=== PATIENT | male | born 1955 ===

== ENCOUNTER 2018-09-29 21:52 | Inpatient (IN) | payer MEDICAID, OTHER ==
[~2018-09-29] VITALS: Ht 170.2 cm; Wt 65.5 kg
[2018-09-30] MEDS ORDERED: IBUPROFEN 200 MG TAB PO ONE (00:30)
[2018-09-30] MEDS ORDERED: HYDROCODONE/APAP (5/325) TAB PO ONE (00:30)
[2018-09-30] MEDS ORDERED: PIPER-TAZO 3.375 GM IV (PMX) 100 ML IVPB STA (02:52)
[2018-09-30] MEDS ORDERED: VANCOMYCIN 1 GM (PMX) 250 ML IVPB STA (02:52)
--- NOTE | 2018-09-30 02:53 | ERD ---
ER Documentation Chief Complaint Chief Complaint LEFT FOOT PAIN/ SWELLING HPI This is a 62-year-old male who presents for evaluation of several days to have left great toe swelling and pain. Patient denies any history of trauma, he has had no previous episodes of this. The patient was initially triaged in the ED to, where he received an x-ray that was concerning for possible osteomyelitis. Given his x-ray findings and significant swelling, with no prior history of such episodes, it was concerning for infection. Patient denies fever. ROS All systems reviewed and are negative except as per history of present illness. Medications Home Meds Reported Medications Docusate Sodium (Docusil) 100 Mg Capsule, 100 MG PO DAILY, #30 CAP 09/30/18 Famotidine* (Famotidine*) 20 Mg Tablet, 20 MG PO DAILY, #30 TAB 09/30/18 Methadone Hcl* (Methadone*) 10 Mg Tab, 138 MG PO DAILY, TAB 09/30/18 Pyridoxine Hcl* (Vitamin B-6*) 50 Mg Capsule, 50 MG PO DAILY, CAP 09/30/18 Pantoprazole* (Pantoprazole*) 40 Mg Tablet.dr, 40 MG PO DAILY, TAB 09/30/18 Ethambutol HCl* (Myambutol*) 400 Mg Tablet, PO DAILY 09/30/18 Ferrous Sulfate* (Ferrous Sulfate*) 325 Mg Tabec, 325 MG PO DAILY, TAB 09/30/18 Allergies Allergies: Coded Allergies: No Known Allergy (Unverified , 09/30/18) PMhx/Soc Medical and Surgical Hx: pt denies Medical Hx, pt denies Surgical Hx Hx Alcohol Use: Yes (occasional) Hx Substance Use: No Hx Tobacco Use: Yes Smoking Status: Current every day smoker Physical Exam Vitals Vital Signs Date Temp Pulse Resp B/P (MAP) Pulse Ox O2 O2 Flow FiO2 Time Delivery Rate 09/30/18 51 16 151/94 100 Room Air 04:30 (113) 09/29/18 98.6 87 18 120/76 98 21:56 (91) Physical Exam Const: Elderly appearing male who appears stated age, nontoxic Head: Atraumatic Eyes: Normal Conjunctiva ENT: Normal External Ears, Nose and Mouth. Neck: Full range of motion. No meningismus. Resp: Clear to auscultation bilaterally Cardio: Regular rate and rhythm, no murmurs Abd: Soft, non tender, non distended. Normal bowel sounds Skin: No petechiae or rashes Back: No midline or flank tenderness Ext: No cyanosis, or edema. There is swelling and redness and tenderness to left great toe, there is no crepitus, there are no abrasions or lacerations, sensation is intact light touch. Neur: Awake and alert Psych: Normal Mood and Affect Result Diagram: 09/30/187 09/30/18 0457 Results 24 hrs Laboratory Tests Test 09/30/18 04:57 White Blood Count 7.1 10^3/ul Red Blood Count 3.32 10^6/ul Hemoglobin 9.5 g/dl Hematocrit 31.0 % Mean Corpuscular Volume 93.4 fl Mean Corpuscular Hemoglobin 28.6 pg Mean Corpuscular Hemoglobin Concent 30.6 g/dl Red Cell Distribution Width 14.7 % Platelet Count 271 10^3/UL Mean Platelet Volume 11.2 fl Immature Granulocytes % 0.100 % Neutrophils % 52.9 % Lymphocytes % 29.6 % Monocytes % 14.8 % Eosinophils % 2.3 % Basophils % 0.3 % Nucleated Red Blood Cells % 0.0 /100WBC Immature Granulocytes # 0.010 10^3/ul Neutrophils # 3.8 10^3/ul Lymphocytes # 2.1 10^3/ul Monocytes # 1.1 10^3/ul Eosinophils # 0.2 10^3/ul Basophils # 0.0 10^3/ul Nucleated Red Blood Cells # 0.0 10^3/ul Erythrocyte Sedimentation Rate 51 mm/Hr Sodium Level 144 mmol/L Potassium Level 4.7 mmol/L Chloride Level 108 mmol/L Carbon Dioxide Level 30 mmol/L Anion Gap 6 Blood Urea Nitrogen 12 mg/dl Creatinine 0.75 mg/dl Est Glomerular Filtrat Rate mL/min > 60 mL/min Glucose Level 82 mg/dl Calcium Level 8.9 mg/dl Total Bilirubin 0.3 mg/dl Direct Bilirubin 0.00 mg/dl Indirect Bilirubin 0.3 mg/dl Aspartate Amino Transf (AST/SGOT) 58 IU/L Alanine Aminotransferase (ALT/SGPT) 18 IU/L Alkaline Phosphatase 93 IU/L C-Reactive Protein 1.9 mg/dl Total Protein 8.6 g/dl Albumin 3.5 g/dl Globulin 5.10 g/dl Albumin/Globulin Ratio 0.68 Current Medications Medications Dose Sig/Binu Start Time Status Last (Trade) Ordered Route PRN Stop Time Admin Dose Reason Admin Ibuprofen 400 mg ONCE ONCE 09/30/18 DC 09/30/18 (Motrin) PO 00:30 00:24 09/30/18 00:31 1 tab ONCE ONCE 09/30/18 DC 09/30/18 Acetaminophen PO 00:30 00:24 / 09/30/18 00:31 Hydrocodone Bitart ([place] (5/325)) Vancomycin 250 ml @ ONCE STAT 09/30/18 DC 09/30/18 HCl 125 mls/hr IVPB 02:52 05:37 09/30/18 04:51 Piperacillin 100 ml @ ONCE STAT 09/30/18 DC 09/30/18 Sod/ 200 mls/hr IVPB 02:52 05:04 Tazobactam 09/30/18 03:21 Sod Procedures/MDM 62-year-old male presents for evaluation of left great toe pain, with an x-ray with findings concerning for osteomyelitis. Given these findings, the patient will require admission for IV antibiotics, and likely podiatry consult, patient was treated with vancomycin and Zosyn, patient had no evidence of severe sepsis or septic shock. Accepting Care Team: Current data and ongoing care discussed. Primary: Amde Consulting: None Outstanding Data: none Departure Diagnosis: Primary Impression: Osteomyelitis Osteomyelitis type: unspecified type Osteomyelitis location: unspecified site Qualified Codes: M86.9 - Osteomyelitis, unspecified Condition: TREMAINE Moore MD September 30, 2018 02:52
[2018-09-30] MEDS ORDERED: ACETAMINOPHEN 325 MG TAB PO PRN (06:00)
[2018-09-30] MEDS ORDERED: NACL 0.9% 3 ML SYG IV SCH (06:00)
[2018-09-30] MEDS ORDERED: CEFEPIME 1GM/50 ML (PMX) 50 ML IVPB ONE (06:00)
[2018-09-30] MEDS ORDERED: ONDANSETRON 4 MG INJ IV PRN (06:00)
[2018-09-30] MEDS ORDERED: HYDROCODONE/APAP (5/325) TAB PO PRN (06:00)
[2018-09-30] MEDS ORDERED: VANCOMYCIN IV PER PHARMACY XX SCH (06:00)
--- NOTE | 2018-09-30 06:20 | HP ---
Date/Time of Note Date/Time of Note DATE: 09/30/18 TIME: 06:15 Assessment/Plan VTE Prophylaxis Pharmacological prophylaxis: heparin Lines/Catheters IV Catheter Type (from Nrs): Saline Lock Assessment/Plan Assessment/Plan 62-year-old male brought to the ER for left foot swelling/pain X few days, secondary to an infectious process. Need to rule out osteomyelitis PLAN -IV antibiotic -MRI to evaluate for osteomyelitis -Podiatry consult -CRP and ESR -Pain management -FOBT and ferritin/iron to evaluate for GI bleed and iron deficiency Result Diagram: 09/30/18 0457 Results 24hrs Laboratory Tests Test 09/30/18 04:57 White Blood Count 7.1 Red Blood Count 3.32 L Hemoglobin 9.5 L Hematocrit 31.0 L Mean Corpuscular Volume 93.4 Mean Corpuscular Hemoglobin 28.6 L Mean Corpuscular Hemoglobin Concent 30.6 L Red Cell Distribution Width 14.7 H Platelet Count 271 Mean Platelet Volume 11.2 H Immature Granulocytes % 0.100 Neutrophils % 52.9 Lymphocytes % 29.6 Monocytes % 14.8 H Eosinophils % 2.3 Basophils % 0.3 Nucleated Red Blood Cells % 0.0 Immature Granulocytes # 0.010 Neutrophils # 3.8 Lymphocytes # 2.1 Monocytes # 1.1 H Eosinophils # 0.2 Basophils # 0.0 Nucleated Red Blood Cells # 0.0 HPI/ROS Admit Date/Time Admit Date/Time Hx of Present Illness This is a 62-year-old male with no significant past medical history who was brought to the ER for left foot and swelling. Symptom has been progressively getting worse for the past few days. Denied trauma. Denied fever/chills, chest pain, shortness of breath, nausea/vomiting. In the ER, lower extremity venous study was negative for DVT. X-ray of the left foot shows the following: -No acute fracture or dislocation. -Deformity of the first MTP joint that is most likely chronic and may be a combination of degenerative postsurgical changes. There is adjacent periosteal reaction, such that the possibility of ongoing or superimposed infection is not excluded. This could be correlated clinically with site of symptomatology; MRI could be considered for further assessment if there is concern for infection or osteomyelitis. -Nonspecific generalized soft tissue swelling, with additional soft tissue density involving or overlying the dorsal tip of the third distal phalanx. PMH/Family/Social Past Medical History Past Surgical Hx: other (see hpi) Family History Significant Family History: no pertinent family hx Social History Alcohol Use: none Smoking Status: Never smoker Drug Use: none Exam Exam Constitutional: other (No acute distress) Head: normocephalic, atraumatic Eyes: EOMI, PERRL Respiratory: other (no wheezing or Rhonchi) Cardiovascular: normal pulse Gastrointestinal: soft, non-tender Extremities: normal pulses Medications Current Medications IV Flush (NS 3 ml) 3 ml PER PROTOCOL IV ; Start 09/30/18 at 06:00 Ondansetron HCl (Zofran Inj) 4 mg Q6H PRN IV NAUSEA/VOMITING; Start 09/30/18 at 06:00 Acetaminophen (Tylenol Tab) 650 mg Q6H PRN PO .PAIN 1-3 OR TEMP; Start 09/30/18 at 06:00 Acetaminophen/ Hydrocodone Bitart ([place] (5/325)) 1 tab Q6H PRN PO .MOD PAIN 4- 6; Start 09/30/18 at 06:00 Acetaminophen/ Hydrocodone Bitart ([place] (5/325)) 2 tab Q6H PRN PO .SEVERE PAIN 7-10; Start 09/30/18 at 06:00 Enoxaparin Sodium (Lovenox) 40 mg DAILY SC ; Start 09/30/18 at 09:00 Vancomycin HCl (Vanco Iv Per Pharmacy) VANCOMYCIN PER PHARMACY PER PROTOCOL XX ; Start 09/30/18 at 06:00 Cefepime HCl 50 ml @ 100 mls/hr ONCE ONCE IVPB ; Start 09/30/18 at 06:00; Sto p 09/30/18 at 06:29 Coded Allergies: No Known Allergy (Unverified , 09/30/18) Social History Smoking Status: Current every day smoker Exam/Review of Systems Vital Signs Vitals Vital Signs Date Temp Pulse Resp B/P (MAP) Pulse Ox O2 O2 Flow FiO2 Time Delivery Rate 09/30/18 51 16 151/94 100 Room Air 04:30 (113) 09/29/18 98.6 21:56 KATHY GARCIA MD September 30, 2018 06:20
[2018-09-30 08:21] VITALS: BP 149/65; PULSE 52; RESP 17
[2018-09-30] MEDS: ENOXAPARIN 40 MG/0.4 ML SYG SC SCH (09:00)
[2018-09-30 09:32] VITALS: Ht 170.2 cm; Wt 65.5 kg
--- NOTE | 2018-09-30 11:48 | PN ---
Date/Time of Note Date/Time of Note DATE: 09/30/18 TIME: 11:46 Assessment/Plan VTE Prophylaxis SCD contraindicated: low risk/ambulating Pharmacological prophylaxis: LMWH Lines/Catheters IV Catheter Type (from Nrs): Saline Lock Assessment/Plan Hospital Course A//P 1. Lt foot infection? osteo? consult podiatry; mri - P 2. Ftt 3. Anemia 4. Incomplete data 5. Tobacco 6. PAD? S: poor historian. follows commands. was hospitalized [County?] for 4 months for unknown problem. O: vss PE no pallor/ droop reg s1s2 no mrg ctab bs + nt nd; no r r g no edema; mild tender foot Result Diagram: 09/30/187 09/30/187 Results 24hrs Laboratory Tests Test 09/30/18 04:57 White Blood Count 7.1 Red Blood Count 3.32 L Hemoglobin 9.5 L Hematocrit 31.0 L Mean Corpuscular Volume 93.4 Mean Corpuscular Hemoglobin 28.6 L Mean Corpuscular Hemoglobin Concent 30.6 L Red Cell Distribution Width 14.7 H Platelet Count 271 Mean Platelet Volume 11.2 H Immature Granulocytes % 0.100 Neutrophils % 52.9 Lymphocytes % 29.6 Monocytes % 14.8 H Eosinophils % 2.3 Basophils % 0.3 Nucleated Red Blood Cells % 0.0 Immature Granulocytes # 0.010 Neutrophils # 3.8 Lymphocytes # 2.1 Monocytes # 1.1 H Eosinophils # 0.2 Basophils # 0.0 Nucleated Red Blood Cells # 0.0 Erythrocyte Sedimentation Rate 51 H Sodium Level 144 Potassium Level 4.7 Chloride Level 108 Carbon Dioxide Level 30 Anion Gap 6 Blood Urea Nitrogen 12 Creatinine 0.75 Est Glomerular Filtrat Rate mL/min > 60 Glucose Level 82 Calcium Level 8.9 Total Bilirubin 0.3 Direct Bilirubin 0.00 Indirect Bilirubin 0.3 Aspartate Amino Transf (AST/SGOT) 58 H Alanine Aminotransferase (ALT/SGPT) 18 Alkaline Phosphatase 93 C-Reactive Protein 1.9 H Total Protein 8.6 H Albumin 3.5 Globulin 5.10 H Albumin/Globulin Ratio 0.68 Exam/Review of Systems Exam Vitals Vital Signs Date Temp Pulse Resp B/P (MAP) Pulse Ox O2 O2 Flow FiO2 Time Delivery Rate 09/30/18 97.7 52 17 149/65 98 Room Air 08:21 (93) Results Results 24hrs Laboratory Tests Test 09/30/18 04:57 White Blood Count 7.1 Red Blood Count 3.32 L Hemoglobin 9.5 L Hematocrit 31.0 L Mean Corpuscular Volume 93.4 Mean Corpuscular Hemoglobin 28.6 L Mean Corpuscular Hemoglobin Concent 30.6 L Red Cell Distribution Width 14.7 H Platelet Count 271 Mean Platelet Volume 11.2 H Immature Granulocytes % 0.100 Neutrophils % 52.9 Lymphocytes % 29.6 Monocytes % 14.8 H Eosinophils % 2.3 Basophils % 0.3 Nucleated Red Blood Cells % 0.0 Immature Granulocytes # 0.010 Neutrophils # 3.8 Lymphocytes # 2.1 Monocytes # 1.1 H Eosinophils # 0.2 Basophils # 0.0 Nucleated Red Blood Cells # 0.0 Erythrocyte Sedimentation Rate 51 H Sodium Level 144 Potassium Level 4.7 Chloride Level 108 Carbon Dioxide Level 30 Anion Gap 6 Blood Urea Nitrogen 12 Creatinine 0.75 Est Glomerular Filtrat Rate mL/min > 60 Glucose Level 82 Calcium Level 8.9 Total Bilirubin 0.3 Direct Bilirubin 0.00 Indirect Bilirubin 0.3 Aspartate Amino Transf (AST/SGOT) 58 H Alanine Aminotransferase (ALT/SGPT) 18 Alkaline Phosphatase 93 C-Reactive Protein 1.9 H Total Protein 8.6 H Albumin 3.5 Globulin 5.10 H Albumin/Globulin Ratio 0.68 Medications Medication Current Medications IV Flush (NS 3 ml) 3 ml PER PROTOCOL IV ; Start 09/30/18 at 06:00 Ondansetron HCl (Zofran Inj) 4 mg Q6H PRN IV NAUSEA/VOMITING; Start 09/30/18 at 06:00 Acetaminophen (Tylenol Tab) 650 mg Q6H PRN PO .PAIN 1-3 OR TEMP; Start 09/30/18 at 06:00 Acetaminophen/ Hydrocodone Bitart ([place] (5/325)) 1 tab Q6H PRN PO .MOD PAIN 4- 6; Start 09/30/18 at 06:00 Acetaminophen/ Hydrocodone Bitart ([place] (5/325)) 2 tab Q6H PRN PO .SEVERE PAIN 7-10; Start 09/30/18 at 06:00 Enoxaparin Sodium (Lovenox) 40 mg DAILY SC ; Start 09/30/18 at 09:00 Vancomycin HCl (Vanco Iv Per Pharmacy) VANCOMYCIN PER PHARMACY PER PROTOCOL XX ; Start 09/30/18 at 06:00 Vancomycin HCl 250 ml @ 125 mls/hr Q12H IVPB ; Start 09/30/18 at 18:00 Lactobacillus Acidophilus/ Rhamnosus (Culturelle) 1 cap BID PO ; Start 09/30/18 at 11:15 WALTER LEONARD MD September 30, 2018 11:48
[2018-09-30] MEDS: HYDROCODONE/APAP (5/325) TAB PO PRN (13:54)
[2018-09-30] MEDS: LACTOBACILLUS RHAMNOSUS CAP PO SCH ×2 (13:54→20:24)
[2018-09-30 15:10] VITALS: BP 147/67; PULSE 65; RESP 16
[2018-09-30] MEDS ORDERED: FER325 PO (16:03)
[2018-09-30] MEDS ORDERED: PANT40TA4 PO (16:03)
[2018-09-30] MEDS ORDERED: PYRI50CA PO (16:03)
[2018-09-30] MEDS ORDERED: ETHA400T24 PO (16:03)
[2018-09-30] MEDS ORDERED: METH10TA2 PO (16:03)
[2018-09-30] MEDS ORDERED: FAMO20TA18 PO (16:04)
[2018-09-30] MEDS ORDERED: DOCU-103 PO (16:05)
[2018-09-30] MEDS: VANCOMYCIN 1 GM 250 ML IVPB SCH (18:11)
[2018-10-01] MEDS: HYDROCODONE/APAP (5/325) TAB PO PRN ×2 (03:33→19:45)
[2018-10-01] MEDS: VANCOMYCIN 1 GM 250 ML IVPB SCH ×2 (05:10→18:54)
[2018-10-01] MEDS: ENOXAPARIN 40 MG/0.4 ML SYG SC SCH (09:00)
[2018-10-01] MEDS: LACTOBACILLUS RHAMNOSUS CAP PO SCH ×2 (09:00→21:00)
--- NOTE | 2018-10-01 14:40 | CONS ---
Assessment/Plan Assessment/Plan Assessment/Plan (Daily) Left foot ulcer PAD Tobacco use Anemia Osteoarthritis Left foot Plan Patient refused examination, made multiple attempts with charge nurse present and continued to refuse. Per nursing reports patient had threatened to leave AMA. Reviewed MRI and X-rays and no signs of osteomyelitis appreciated. Continue with abx therapy as recommended. Consultation Date/Type/Reason Admit Date/Time Date/Time of Note DATE: 10/01/18 TIME: 14:39 Hx of Present Illness 62-year-old male with no significant past medical history who was brought to the ER for left foot and swelling. Symptom has been progressively getting worse for the past few days. Denied trauma. Denied fever/chills, chest pain, shortness of breath, nausea/vomiting. In the ER, lower extremity venous study was negative for DVT. Patient was very dismissive and did not provide much history. Per nursing staff patient is upset about his methadone medication and has been refusing treatments and had threatened to leave AMA. ROS Negative except for HPI Past Medical History none reported Home Meds Reported Medications Docusate Sodium (Docusil) 100 Mg Capsule, 100 MG PO DAILY, #30 CAP 09/30/18 Famotidine* (Famotidine*) 20 Mg Tablet, 20 MG PO DAILY, #30 TAB 09/30/18 Methadone Hcl* (Methadone*) 10 Mg Tab, 138 MG PO DAILY, TAB 09/30/18 Pyridoxine Hcl* (Vitamin B-6*) 50 Mg Capsule, 50 MG PO DAILY, CAP 09/30/18 Pantoprazole* (Pantoprazole*) 40 Mg Tablet.dr, 40 MG PO DAILY, TAB 09/30/18 Ethambutol HCl* (Myambutol*) 400 Mg Tablet, PO DAILY 09/30/18 Ferrous Sulfate* (Ferrous Sulfate*) 325 Mg Tabec, 325 MG PO DAILY, TAB 09/30/18 Medications Current Medications IV Flush (NS 3 ml) 3 ml PER PROTOCOL IV ; Start 09/30/18 at 06:00 Ondansetron HCl (Zofran Inj) 4 mg Q6H PRN IV NAUSEA/VOMITING; Start 09/30/18 at 06:00 Acetaminophen (Tylenol Tab) 650 mg Q6H PRN PO .PAIN 1-3 OR TEMP; Start 09/30/18 at 06:00 Acetaminophen/ Hydrocodone Bitart ([place] (5/325)) 1 tab Q6H PRN PO .MOD PAIN 4- 6; Start 09/30/18 at 06:00 Acetaminophen/ Hydrocodone Bitart ([place] (5/325)) 2 tab Q6H PRN PO .SEVERE PAIN 7-10 Last administered on 10/01/18at 03:33; Admin Dose 2 TAB; Start 09/30/18 at 06:00 Enoxaparin Sodium (Lovenox) 40 mg DAILY SC ; Start 09/30/18 at 09:00 Vancomycin HCl (Vanco Iv Per Pharmacy) VANCOMYCIN PER PHARMACY PER PROTOCOL XX ; Start 09/30/18 at 06:00 Vancomycin HCl 250 ml @ 125 mls/hr Q12H IVPB Last administered on 10/01/18at 05:10; Admin Dose 125 MLS/HR; Start 09/30/18 at 18:00 Lactobacillus Acidophilus/ Rhamnosus (Culturelle) 1 cap BID PO Last administered on 09/30/18at 13:54; Admin Dose 1 CAP; Start 09/30/18 at 11:15 Miscellaneous Information (*Rx Drug Level Order Reminder*) 1 1700 ONCE XX ; Start 10/01/18 at 17:00; Stop 10/01/18 at 17:01 Methadone HCl (Methadone Liq) 130 mg DAILY PO ; Start 10/01/18 at 15:00 Allergies: Coded Allergies: No Known Allergy (Unverified , 09/30/18) Past Surgical History Past Surgical Hx: no surgical history Family History Significant Family History: no pertinent family hx Social History Smoking Status: Never smoker Exam/Review of Systems Exam Vitals Vital Signs Date Temp Pulse Resp B/P (MAP) Pulse Ox O2 O2 Flow FiO2 Time Delivery Rate 09/30/18 97.8 65 16 147/67 98 Room Air 15:10 (93) Intake and Output 09/30/18 09/30/18 10/01/18 1515:00 23:00 07:00 IntakeIntake Total 250 ml 125 ml OutputOutput Total 400 ml BalanceBalance 250 ml -275 ml Exam Patient refused physical exam Results Result Diagram: 09/30/18 0457 09/30/18 0457 Medications Medication Current Medications IV Flush (NS 3 ml) 3 ml PER PROTOCOL IV ; Start 09/30/18 at 06:00 Ondansetron HCl (Zofran Inj) 4 mg Q6H PRN IV NAUSEA/VOMITING; Start 09/30/18 at 06:00 Acetaminophen (Tylenol Tab) 650 mg Q6H PRN PO .PAIN 1-3 OR TEMP; Start 09/30/18 at 06:00 Acetaminophen/ Hydrocodone Bitart ([place] (5/325)) 1 tab Q6H PRN PO .MOD PAIN 4- 6; Start 09/30/18 at 06:00 Acetaminophen/ Hydrocodone Bitart ([place] (5/325)) 2 tab Q6H PRN PO .SEVERE PAIN 7-10 Last administered on 10/01/18at 03:33; Admin Dose 2 TAB; Start 09/30/18 at 06:00 Enoxaparin Sodium (Lovenox) 40 mg DAILY SC ; Start 09/30/18 at 09:00 Vancomycin HCl (Vanco Iv Per Pharmacy) VANCOMYCIN PER PHARMACY PER PROTOCOL XX ; Start 09/30/18 at 06:00 Vancomycin HCl 250 ml @ 125 mls/hr Q12H IVPB Last administered on 10/01/18at 05:10; Admin Dose 125 MLS/HR; Start 09/30/18 at 18:00 Lactobacillus Acidophilus/ Rhamnosus (Culturelle) 1 cap BID PO Last administered on 09/30/18at 13:54; Admin Dose 1 CAP; Start 09/30/18 at 11:15 Miscellaneous Information (*Rx Drug Level Order Reminder*) 1 1700 ONCE XX ; Start 10/01/18 at 17:00; Stop 10/01/18 at 17:01 Methadone HCl (Methadone Liq) 130 mg DAILY PO ; Start 10/01/18 at 15:00 PEGGY DAN DPM October 01, 2018 14:40
[2018-10-01] MEDS ORDERED: METHADONE (1 MG/ML 5 ML PO UD SYG) PO SCH (15:00)
--- NOTE | 2018-10-01 18:22 | PN ---
Date/Time of Note Date/Time of Note DATE: 10/01/18 TIME: 18:20 Assessment/Plan VTE Prophylaxis Risk score (from Ns)>0 risk: 3 SCD applied (from Ns): No SCD contraindicated: other Pharmacological prophylaxis: LMWH Lines/Catheters [facility] Saline Lock Assessment/Plan Hospital Course SUBJECTIVE: Continues to complain of left great toe pain. OBJECTIVE: Physical Exam General: Adequately build 62 year-old male lying in bed in no apparent distress, who looks disheveled. HEENT: Normocephalic, atraumatic. Eyes: Anicteric sclerae, conjunctivae clear. ENT: Nasal septum midline, oral mucosa moist. Neck supple, no JVD noticed. Respiratory: Bilaterally clear breath sounds. No use of accessory muscles of respiration. No adventitious breath sounds. Cardiovascular: S1, S2 heard. Regular rate and rhythm. Abdomen: Soft, nontender, and nondistended. Bowel sounds positive in all 4 quadrants. Genitourinary: Deferred. Extremities: No cyanosis, no clubbing, no edema. Left great toe tenderness. Neurologic: The patient is awake and alert. Labs & Vitals per chart ASSESSMENT & PLAN 62-year-old male with past medical history of substance abuse currently on methadone, who came to the emergency room with chief complaint of left great toe swelling and pain, who was admitted to inpatient setting for further treatment and evaluation. 1. Left great toe redness and edema. -Left foot MRI limited due to motion. -Refused examination by podiatry. -Continue empiric antimicrobials for any underlying infectious process. 2. Chronic pain. -Continue methadone. 3. Normocytic anemia. -Etiology unclear. -Monitor H&H closely. 4. Fluids, electrolytes, and nutrition. -Regular diet. 5. DVT prophylaxis. -SQ Lovenox. 6. Debility. -Obtain physical therapy evaluation. 7. Plan. -Await clinical improvement. The patient was seen in collaboration with Dr. Burciaga. Result Diagram: 09/30/18 0457 09/30/18 0457 Results 24hrs Laboratory Tests Test 10/01/18 18:07 White Blood Count Pending Red Blood Count Pending Hemoglobin Pending Hematocrit Pending Mean Corpuscular Volume Pending Mean Corpuscular Hemoglobin Pending Mean Corpuscular Hemoglobin Concent Pending Red Cell Distribution Width Pending Platelet Count Pending Mean Platelet Volume Pending Exam/Review of Systems Exam Vitals Vital Signs Date Temp Pulse Resp B/P (MAP) Pulse Ox O2 O2 Flow FiO2 Time Delivery Rate 09/30/18 97.8 65 16 147/67 98 Room Air 15:10 (93) Intake and Output 09/30/18 09/30/18 10/01/18 1515:00 23:00 07:00 IntakeIntake Total 250 ml 125 ml OutputOutput Total 400 ml BalanceBalance 250 ml -275 ml Results Results 24hrs Laboratory Tests Test 10/01/18 18:07 White Blood Count Pending Red Blood Count Pending Hemoglobin Pending Hematocrit Pending Mean Corpuscular Volume Pending Mean Corpuscular Hemoglobin Pending Mean Corpuscular Hemoglobin Concent Pending Red Cell Distribution Width Pending Platelet Count Pending Mean Platelet Volume Pending Medications Medication Current Medications IV Flush (NS 3 ml) 3 ml PER PROTOCOL IV ; Start 09/30/18 at 06:00 Ondansetron HCl (Zofran Inj) 4 mg Q6H PRN IV NAUSEA/VOMITING; Start 09/30/18 at 06:00 Acetaminophen (Tylenol Tab) 650 mg Q6H PRN PO .PAIN 1-3 OR TEMP; Start 09/30/18 at 06:00 Acetaminophen/ Hydrocodone Bitart ([place] (5/325)) 1 tab Q6H PRN PO .MOD PAIN 4- 6; Start 09/30/18 at 06:00 Acetaminophen/ Hydrocodone Bitart ([place] (5/325)) 2 tab Q6H PRN PO .SEVERE PAIN 7-10 Last administered on 10/01/18at 03:33; Admin Dose 2 TAB; Start 09/30/18 at 06:00 Enoxaparin Sodium (Lovenox) 40 mg DAILY SC ; Start 09/30/18 at 09:00 Vancomycin HCl (Vanco Iv Per Pharmacy) VANCOMYCIN PER PHARMACY PER PROTOCOL XX ; Start 09/30/18 at 06:00 Vancomycin HCl 250 ml @ 125 mls/hr Q12H IVPB Last administered on 10/01/18at 05:10; Admin Dose 125 MLS/HR; Start 09/30/18 at 18:00 Lactobacillus Acidophilus/ Rhamnosus (Culturelle) 1 cap BID PO Last administered on 09/30/18at 13:54; Admin Dose 1 CAP; Start 09/30/18 at 11:15 Methadone HCl (Methadone) 130 mg DAILY PO ; Start 10/02/18 at 09:00 HERMANN MODI NP October 01, 2018 18:22
[2018-10-01 20:00] VITALS: BP 155/87; PULSE 56; RESP 17
[2018-10-01] MEDS ORDERED: ZYVOX 600 MG TAB PO ONE (22:30)
[2018-10-02 02:00] VITALS: BP 149/80; PULSE 55; RESP 17
[2018-10-02] MEDS: VANCOMYCIN 1 GM 250 ML IVPB SCH ×2 (05:48→17:05)
[2018-10-02] MEDS ORDERED: ZYVOX 600 MG TAB PO ONE (06:00)
[2018-10-02] MEDS ORDERED: METHADONE 1 MG/ML (ORAL SOLN) PO SCH (09:00)
[2018-10-02] MEDS: ENOXAPARIN 40 MG/0.4 ML SYG SC SCH (09:00)
[2018-10-02] MEDS ORDERED: METHADONE 10 MG TAB PO SCH (09:00)
[2018-10-02] MEDS: LACTOBACILLUS RHAMNOSUS CAP PO SCH (09:34)
--- NOTE | 2018-10-02 16:02 | PDOCDIS ---
Discharge Instructions CONDITION [id number] Patient Condition: [id number] Stable FOLLOW UP/APPOINTMENTS Follow-up Plan Isaiah Frye MD Specialty: Internal Medicine Office Address: [address] [place] [address] Office OTHER ORDERS: Other Orders: 1. Resume home medications. 2. Resume prehospitalization activities. 3. Resume prehospitalization diet. 4. Take a regular diet. 5. Follow-up with your primary care physician in 2 weeks. If you do not have a primary care physician, please call Dr. Isaiah Frye's office. HERMANN MODI NP October 02, 2018 16:02
--- NOTE | 2018-10-02 18:43 | DS ---
Date/Time of Note Date/Time of Note DATE: 10/02/18 TIME: 18:40 Discharge Summary Admission/Discharge Info Admit Date/Time September 30, 2018 at 05:16 Discharge Date/Time Discharge Diagnosis 1. Left great toe redness and edema. 2. Chronic pain. 3. Normocytic anemia. Patient Condition: Stable Consults 1. Moody Goldman DPM, Podiatry. Procedures Left Foot MRI IMPRESSION: 1. Limited study due to motion as well as the patients inability to complete the exam. Repeat imaging is suggested as clinically feasible. 2. Mild subcutaneous soft tissue swelling without discrete drainable fluid collection. 3. Severe first metatarsophalangeal joint osteoarthrosis. 4. No definite evidence of acute fracture or osteomyelitis. Hx of Present Illness This is a 62-year-old male with past medical history of substance abuse veronica mittal on methadone, who came to the emergency room with chief complaint of left great toe swelling and pain, who was admitted to inpatient setting for further treatment and evaluation. Hospital Course The patient is a very poor historian. The patient underwent a left foot x-ray in the emergency room that was showing deformity of the first metatarsophalangeal joint which may be chronic. The x-ray also showed adjacent periosteal reaction and therefore MRI was recommended for ruling out any infectious process. The patient underwent an MRI of the left foot. However this was inconclusive because of the patient's noncooperation resulting in motion degradation of the study. However, this showed mild subcutaneous soft tissue swelling without any discrete drainable fluid collection. The patient was maintained on antimicrobials. The patient refused examination by compensation supervisor. The patient remained afebrile. The patient did not have any leukocytosis or febrile illness the patient's C-reactive protein was minimally elevated. His ESR was 51. The patient continued to refuse antibiotic therapy. Meanwhile, the patient's left great toe pain has almost resolved. There was less suspicion for any infectious process. In addition, the patient was noncooperative with the treatment and assessment. Therefore, the patient will be discharged back to the assisted living facility where the patient came from. The patient's chronic problems include chronic pain. The patient was maintained on methadone for the same. The patient was noticed and normocytic anemia. The patient's H&H remained stable. The patient's iron panel was showing low TIBC and low iron saturation with adequate iron and ferritin levels. Discharge Instructions 1. Resume home medications. 2. Resume prehospitalization activities. 3. Resume prehospitalization diet. 4. Take a regular diet. 5. Follow-up with your primary care physician in 2 weeks. If you do not have a primary care physician, please call Dr. Isaiah Frye's office. The patient verbalized understanding of his discharge instructions. At this time I would like to thank all the consultants for seeing the patient and providing clinical recommendations. The patient was seen in collaboration with Dr. Burciaga. Home Meds Reported Medications Docusate Sodium (Docusil) 100 Mg Capsule, 100 MG PO DAILY, #30 CAP 09/30/18 Famotidine* (Famotidine*) 20 Mg Tablet, 20 MG PO DAILY, #30 TAB 09/30/18 Methadone Hcl* (Methadone*) 10 Mg Tab, 138 MG PO DAILY, TAB 09/30/18 Pyridoxine Hcl* (Vitamin B-6*) 50 Mg Capsule, 50 MG PO DAILY, CAP 09/30/18 Pantoprazole* (Pantoprazole*) 40 Mg Tablet.dr, 40 MG PO DAILY, TAB 09/30/18 Ethambutol HCl* (Myambutol*) 400 Mg Tablet, PO DAILY 09/30/18 Ferrous Sulfate* (Ferrous Sulfate*) 325 Mg Tabec, 325 MG PO DAILY, TAB 09/30/18 Follow-up Plan Isaiah Frye MD Specialty: Internal Medicine Office Address: [address] [place] [address] Office Primary Care Provider Not On Staff Doctor Time spent on discharge: > 30 minutes Pending Labs Laboratory Tests Test 10/02/18 05:55 Urine Opiates Screen POSITIVE (NEGATIVE) Urine Barbiturates NEGATIVE (NEGATIVE) Urine Amphetamines Screen NEGATIVE (NEGATIVE) Urine Benzodiazepines Screen NEGATIVE (NEGATIVE) Urine Cocaine Screen NEGATIVE (NEGATIVE) Urine Cannabinoids NEGATIVE (NEGATIVE) HERMANN MODI NP October 02, 2018 18:43
== END 2018-10-02 19:30 | disposition home or self-care (01) | DRG 607 ==
LOC: FTE 21:52 → PP2 09-30 05:16
PROVIDERS: ADMIT Internal Medicine; ATTEND Internal Medicine
DX: R23.8 Other skin changes (principal); M79.672 Pain in left foot; R60.0 Localized edema; G89.29 Other chronic pain; D64.9 Anemia, unspecified; F17.200 Nicotine dependence, unspecified, uncomplicated; R62.7 Adult failure to thrive; Z68.22 Body mass index [BMI] 22.0-22.9, adult; M19.072 Primary osteoarthritis, left ankle and foot
CPT/HCPCS: 36415; 73718; 80048; 80053; 80061; 80202; 80307; 81001; 81003; 82728; 83036; 83540; 83735; 84100; 84443; 85025; 85610; 85651; 86140; 87081; 93971; 96374; J0692; J1650; J2543; J3370